=== PATIENT | female | born 2000 | race Caucasian/White ===

== ENCOUNTER 2022-03-09 12:26 | Outpatient (REF) | payer OTHER, SELFPAY ==
[2022-03-11 14:49] LABS: Chlamydia Result Negative (Negative); GC Result Negative (Negative)
== END 2022-03-09 12:27 | disposition home or self-care (01) ==
LOC: NCHCN 12:26
PROVIDERS: Visit Provider Nurse Practitioner Family
DX: Z11.3 Encounter for screening for infections with a predominantly sexual mode of transmission (principal)
CPT/HCPCS: 87491; 87591

== ENCOUNTER 2022-03-13 16:36 | Outpatient (REF) | payer OTHER, SELFPAY ==
[2022-03-13 15:48] LABS: Hemoglobin A1C 4.9 % (<5.7)
[2022-03-13 16:09] LABS: Calculated LDL 103 mg/dL (<100); Cholesterol 220 mg/dL (<200); HDL Cholesterol 69 mg/dL (40-60); Triglyceride 240 mg/dL (<150)
== END 2022-03-13 16:37 | disposition home or self-care (01) ==
LOC: NCHCN 16:36
PROVIDERS: PCP Nurse Practitioner Family; Visit Provider Nurse Practitioner Family
DX: E28.2 Polycystic ovarian syndrome (principal)
CPT/HCPCS: 80061; 83036